=== PATIENT | male | born 1975 ===

== ENCOUNTER 2016-11-10 15:52 | Emergency (ER) | payer SELFPAY ==
[~2016-11-10] VITALS: Ht 190.5 cm; Wt 86.4 kg
[2016-11-10 15:54] VITALS: BP 119/72; PULSE 115; RESP 14; TEMP 99.7; O2SAT 97
--- NOTE | 2016-11-10 17:03 | PD ---
Physical Exam Date Seen by Provider: Nov 10, 2016 Time Seen by Provider: 17:01 Data Data Last Documented VS Vital Signs Date Time Temp Pulse Resp B/P Pulse Ox O2 Delivery O2 Flow Rate FiO2 11/10/16 15:54 99.7 115 14 119/72 97 MDM Supervised Visit with JILL: No Narrative Course 41 YO M with complaint of right sided flank pain x 4 hours. States similar to previous kidney stones. Vitals reviewed. Patient seen in triage, awaiting bed placement. Sarah Contreras Nov 10, 2016 17:02
== END 2016-11-10 18:49 | disposition left against medical advice (07) ==
LOC: NED 15:52
DX: R10.9 Unspecified abdominal pain (principal); Z53.21 Procedure and treatment not carried out due to patient leaving prior to being seen by health care provider
CPT/HCPCS: 99281